=== PATIENT | male | born 1955 | race African-American/Black ===

== ENCOUNTER 2022-05-01 18:41 | Emergency (ER) | payer MEDICARE, MEDICAID ==
[~2022-05-01] VITALS: Ht 185.4 cm; Wt 100.0 kg
[2022-05-01 18:49] VITALS: BP 139/89
[2022-05-02] MEDS ORDERED: IBUPROFEN 600MG TABLET PO ONE (01:45)
[2022-05-02] MEDS ORDERED: IBUP-2029 MT (05:48)
[2022-05-02] MEDS ORDERED: CYCL10TA21 MT (05:48)
== END 2022-05-02 06:08 | disposition home or self-care (01) ==
LOC: ER 18:41
DX: M54.50 Low back pain, unspecified (principal); M54.2 Cervicalgia; V43.52XA Car driver injured in collision with other type car in traffic accident, initial encounter; Y93.89 Activity, other specified; Y92.488 Other paved roadways as the place of occurrence of the external cause
CPT/HCPCS: 71045; 71250; 74176; 99284

== ENCOUNTER 2022-06-16 06:26 | Inpatient (IN) | payer BC, MEDICAID ==
[~2022-06-16] VITALS: Ht 185.4 cm; Wt 107.0 kg
[~2022-06-16 06:26] MED LIST: CYCL10TA21 MT; IBUP-2029 MT
[2022-06-16] MEDS ORDERED: NITROGLYCERIN 0.4MG TABLET SL SL PRN (06:45)
[2022-06-16] MEDS ORDERED: ASPIRIN 81MG TABLET PO ONE (06:45)
[2022-06-16 09:59] LABS: BASOPHILS % 0.1 % (0.0-2.0); EOSINOPHILS % 0.1 % (0.0-5.0); HEMATOCRIT. 36.8 % (42.0-52.0); HEMOGLOBIN. 11.9 g/dL (14.0-18.0); MEAN CORPUSCULAR HEMOGLOBIN 26.4 pg (28.0-32.0); MEAN CORPUSCULAR VOLUME 81.7 fL (80.0-94.0); MEAN PLATELET VOLUME 10.2 fl (7.4-10.4); MONOCYTES % 4.4 % (2.0-8.0); NEUTROPHILS % 68.4 % (40.0-76.0); PLATELET 135 x1000/uL (130-400); RED BLOOD CELL COUNT 4.51 mill/uL (4.7-6.1)
[2022-06-16 10:13] LABS: CHLORIDE 106 mEq/L (98-107)
[2022-06-16 10:20] LABS: ETHANOL BLOOD < 10 mg/dL
[2022-06-16 10:56] LABS: *AMPHETAMINES SCREEN URINE NEGATIVE (NEGATIVE); *BARBITURATES SCREEN URINE NEGATIVE (NEGATIVE); *BENZODIAZEPINES SCREEN URINE NEGATIVE (NEGATIVE); *COCAINE SCREEN URINE NEGATIVE (NEGATIVE); CANNABINOID URINE SCREEN NEGATIVE (NEGATIVE); METHADONE URINE SCREEN NEGATIVE (NEGATIVE); OPIATES URINE SCREEN NEGATIVE (NEGATIVE); PHENCYCLIDINE URINE SCREEN NEGATIVE (NEGATIVE)
[2022-06-16] MEDS ORDERED: SODIUM CHLORIDE 0.9% 1,000 ML IV ONE (11:30)
[2022-06-16] MEDS ORDERED: ACETAMINOPHEN 325MG TABLET PO ONE (11:45)
[2022-06-16] MEDS ORDERED: DOCUSATE SODIUM 100MG CAPSULE PO PRN (12:45)
[2022-06-16] MEDS ORDERED: ONDANSETRON HCL 4MG/2ML INJ IV PRN (12:45)
[2022-06-16] MEDS ORDERED: ACETAMINOPHEN 325MG TABLET PO PRN ×2 (12:45)
[2022-06-16] MEDS ORDERED: IPRATROPIUM/ALBUTEROL 0.5-3(2.5)MG/3ML NEB HHN PRN (12:45)
[2022-06-16] MEDS ORDERED: CLONIDINE 0.1MG TABLET PO PRN (12:45)
[2022-06-16] MEDS ORDERED: NALOXONE HCL 0.4 MG/ML 1ML VIAL IV PRN (13:00)
[2022-06-16 14:37] LABS: PHOSPHORUS 4.3 mg/dL (2.5-4.9)
[2022-06-16 15:12] VITALS: BP 130/72
[2022-06-16 16:00] VITALS: BP 133/70
[2022-06-16] MEDS ORDERED: DEXTROSE 50% WATER 50ML SYRINGE IV PRN (18:30)
[2022-06-16 20:00] VITALS: BP 138/52
[2022-06-16] MEDS: BLOOD SUGAR DIAGNOSTIC STRIP TEST SCH (21:17)
[2022-06-16] MEDS: INSULIN LISPRO 100 UNITS/ML SUBCUT SCH (21:44)
[2022-06-16] MEDS: LORAZEPAM 0.5MG TABLET PO PRN (22:02)
[2022-06-16] MEDS: HYDROCODONE/ACETAMINOPHEN 5/325MG TABLET PO PRN (22:02)
[2022-06-17] VITALS: BP 133/79
[2022-06-17 04:00] VITALS: BP 125/78
[2022-06-17 06:51] LABS: BASOPHILS % 0.4 % (0.0-2.0); EOSINOPHILS % 2.5 % (0.0-5.0); HEMATOCRIT. 39.7 % (42.0-52.0); HEMOGLOBIN. 12.9 g/dL (14.0-18.0); LYMPHOCYTES % 53.3 % (20.0-50.0); MEAN CORPUSCULAR HEMOGLOBIN 26.4 pg (28.0-32.0); MONOCYTES % 6.5 % (2.0-8.0); NEUTROPHILS % 37.3 % (40.0-76.0); PLATELET 150 x1000/uL (130-400)
[2022-06-17] MEDS: INSULIN LISPRO 100 UNITS/ML SUBCUT SCH ×4 (07:10→20:53)
[2022-06-17] MEDS: BLOOD SUGAR DIAGNOSTIC STRIP TEST SCH ×4 (07:33→20:53)
[2022-06-17 08:00] VITALS: BP 146/67
[2022-06-17] MEDS: ASPIRIN 81MG TABLET PO SCH (08:43)
[2022-06-17 10:28] LABS: T4 FREE 0.93 ng/dL (0.76-1.46)
[2022-06-17 12:00] VITALS: BP 126/71
[2022-06-17] MEDS ORDERED: REGADENOSON 0.4 MG/5 ML IV NR (14:00)
[2022-06-17 16:00] VITALS: BP 148/63
[2022-06-17 20:00] VITALS: BP 149/63
[2022-06-17 20:20] LABS: CREATINE KINASE MB FRACTION 1.6 ng/mL (0.5-3.6)
[2022-06-17] MEDS: LORAZEPAM 0.5MG TABLET PO PRN (20:36)
[2022-06-17] MEDS: HYDROCODONE/ACETAMINOPHEN 5/325MG TABLET PO PRN (20:37)
[2022-06-18] VITALS: BP 139/56
[2022-06-18 01:08] LABS: CREATINE KINASE MB FRACTION 1.8 ng/mL (0.5-3.6)
[2022-06-18 04:00] VITALS: BP 156/59
[2022-06-18] MEDS: BLOOD SUGAR DIAGNOSTIC STRIP TEST SCH ×4 (06:40→20:50)
[2022-06-18] MEDS: INSULIN LISPRO 100 UNITS/ML SUBCUT SCH ×4 (07:10→20:50)
[2022-06-18 07:26] LABS: BASOPHILS % 0.3 % (0.0-2.0); EOSINOPHILS % 4.1 % (0.0-5.0); HEMATOCRIT. 37.4 % (42.0-52.0); HEMOGLOBIN. 12.1 g/dL (14.0-18.0); LYMPHOCYTES % 51.8 % (20.0-50.0); MEAN CORPUSCULAR HEMOGLOBIN 26.2 pg (28.0-32.0); MEAN CORPUSCULAR VOLUME 80.9 fL (80.0-94.0); MEAN PLATELET VOLUME 9.9 fl (7.4-10.4); MONOCYTES % 7.1 % (2.0-8.0); NEUTROPHILS % 36.7 % (40.0-76.0); PLATELET 130 x1000/uL (130-400); RED BLOOD CELL COUNT 4.63 mill/uL (4.7-6.1)
[2022-06-18 08:00] VITALS: BP 106/68
[2022-06-18 08:20] LABS: CHLORIDE 109 mEq/L (98-107)
[2022-06-18] MEDS: ASPIRIN 81MG TABLET PO SCH (08:26)
[2022-06-18 08:32] LABS: CREATINE KINASE 110 IU/L (39-308); CREATINE KINASE MB FRACTION 1.7 ng/mL (0.5-3.6)
[2022-06-18] MEDS ORDERED: INSU100I28 SQ (10:37)
[2022-06-18] MEDS ORDERED: ASPI-1160 PO (10:37)
[2022-06-18] MEDS ORDERED: REGADENOSON 0.4 MG/5 ML IV ONE (13:41)
[2022-06-18] MEDS: HYDROCODONE/ACETAMINOPHEN 5/325MG TABLET PO PRN ×2 (15:34→23:40)
[2022-06-18 16:00] VITALS: BP 122/62
[2022-06-18 20:00] VITALS: BP 125/54
[2022-06-18] MEDS: LORAZEPAM 0.5MG TABLET PO PRN (21:13)
[2022-06-18] MEDS ORDERED: INSULIN GLARGINE 100 UNITS/ML SUBCUT SCH (22:00)
[2022-06-19] VITALS: BP 123/75
[2022-06-19 04:00] VITALS: BP 136/73
[2022-06-19] MEDS: BLOOD SUGAR DIAGNOSTIC STRIP TEST SCH ×3 (05:54→16:58)
[2022-06-19] MEDS: INSULIN LISPRO 100 UNITS/ML SUBCUT SCH ×4 (05:54→16:59)
[2022-06-19 08:00] VITALS: BP 121/67
[2022-06-19] MEDS: ASPIRIN 81MG TABLET PO SCH (09:04)
[2022-06-19] MEDS: HYDROCODONE/ACETAMINOPHEN 5/325MG TABLET PO PRN (09:05)
[2022-06-19] MEDS ORDERED: ATOR10TA69 MT (10:46)
[2022-06-19 12:00] VITALS: BP 130/50
[2022-06-19 16:00] VITALS: BP 148/57
[2022-06-19 16:27] VITALS: BP 148/57
[2022-06-19] MEDS ORDERED: ATORVASTATIN CALCIUM 20MG TABLET PO SCH (21:00)
== END 2022-06-19 19:55 | disposition home or self-care (01) | DRG 206 ==
LOC: ER 06:26 → EDBEDREQ 12:05 → 7EST 14:15
PROVIDERS: ADMIT Internal Medicine; ATTEND Internal Medicine
PROC: 4A02XM4 Measurement of Cardiac Total Activity, External Approach (ICD-10-PCS; principal; 2022-06-18)
PROC: 3E033HZ Introduction of Radioactive Substance into Peripheral Vein, Percutaneous Approach (ICD-10-PCS; 2022-06-18)
DX: M94.0 Chondrocostal junction syndrome [Tietze] (principal); E87.1 Hypo-osmolality and hyponatremia; D64.9 Anemia, unspecified; E11.65 Type 2 diabetes mellitus with hyperglycemia; E78.00 Pure hypercholesterolemia, unspecified; I10 Essential (primary) hypertension; Z20.822 Contact with and (suspected) exposure to COVID-19; R00.1 Bradycardia, unspecified; G89.29 Other chronic pain; M50.10 Cervical disc disorder with radiculopathy, unspecified cervical region; M47.892 Other spondylosis, cervical region; I45.10 Unspecified right bundle-branch block; Z79.84 Long term (current) use of oral hypoglycemic drugs
CPT/HCPCS: 36415; 71045; 78452; 80048; 80053; 80061; 80305; 80320; 82550; 82553; 82962; 83036; 83735; 83880; 84100; 84439; 84443; 84484; 85025; 85379; 87426; 93005; 93017; 93306; 93880; 99285; A9500; J1815; J2785; J7030; G0480

== ENCOUNTER 2022-09-10 20:05 | Emergency (ER) | payer MEDICARE, MEDICAID ==
[~2022-09-10] VITALS: Ht 185.4 cm; Wt 95.0 kg
[~2022-09-10 20:05] MED LIST changes: +ASPI-1160 PO; +ATOR10TA69 MT; -IBUP-2029 MT; +INSU100I28 SQ
[2022-09-11 04:10] LABS: BASOPHILS % 0.2 % (0.0-2.0); EOSINOPHILS % 0.1 % (0.0-5.0); HEMATOCRIT. 34.3 % (42.0-52.0); HEMOGLOBIN. 11.6 g/dL (14.0-18.0); LYMPHOCYTES % 30.5 % (20.0-50.0); MEAN CORPUSCULAR HEMOGLOBIN 27.4 pg (28.0-32.0); MEAN CORPUSCULAR VOLUME 81.4 fL (80.0-94.0); MEAN PLATELET VOLUME 10.4 fl (7.4-10.4); MONOCYTES % 6.3 % (2.0-8.0); NEUTROPHILS % 62.9 % (40.0-76.0); PLATELET 175 x1000/uL (130-400); RED BLOOD CELL COUNT 4.22 mill/uL (4.7-6.1)
[2022-09-11 04:14] LABS: CHLORIDE 97 mEq/L (98-107)
[2022-09-11 04:48] LABS: PROTHROMBIN TIME 10.9 sec (9.6-11.0)
[2022-09-11] MEDS ORDERED: SODIUM CHLORIDE 0.9% 1,000 ML IV ONE ×2 (06:00→08:00)
[2022-09-11 06:30] VITALS: BP 158/74
== END 2022-09-11 08:36 | disposition home or self-care (01) ==
LOC: ER 20:05
DX: F99 Mental disorder, not otherwise specified (principal); R45.850 Homicidal ideations; E11.65 Type 2 diabetes mellitus with hyperglycemia; R07.89 Other chest pain; I10 Essential (primary) hypertension; Z20.822 Contact with and (suspected) exposure to COVID-19; Z59.00 Homelessness unspecified; Z79.82 Long term (current) use of aspirin; Z87.828 Personal history of other (healed) physical injury and trauma
CPT/HCPCS: 36415; 71045; 80053; 82962; 84484; 85025; 85610; 87426; 87804; 96360; 99284; C9803; J7030